=== PATIENT | male | born 1940 | race Caucasian/White ===

== ENCOUNTER 2016-05-11 15:16 | Outpatient (CLI) | payer MEDICARE, OTHER | END 2016-05-11 15:17 | disposition home or self-care (01) | DX: E11.9 Type 2 diabetes mellitus without complications (principal); Z79.899 Other long term (current) drug therapy ==

== ENCOUNTER 2016-06-07 11:03 | Outpatient (CLI) | payer MEDICARE, OTHER | END 2016-06-07 11:04 | disposition home or self-care (01) | DX: G47.10 Hypersomnia, unspecified (principal); R06.83 Snoring; E66.9 Obesity, unspecified; Z68.32 Body mass index [BMI] 32.0-32.9, adult; I10 Essential (primary) hypertension | CPT/HCPCS: 99203; G0463 ==

== ENCOUNTER 2016-06-22 19:28 | Outpatient (CLI) | payer MEDICARE, OTHER | END 2016-06-22 19:29 | disposition home or self-care (01) | DX: G47.33 Obstructive sleep apnea (adult) (pediatric) (principal); G47.61 Periodic limb movement disorder; Z68.33 Body mass index [BMI] 33.0-33.9, adult ==

== ENCOUNTER 2016-07-07 14:09 | Outpatient (CLI) | payer MEDICARE, OTHER | END 2016-07-07 14:10 | disposition home or self-care (01) | DX: G47.33 Obstructive sleep apnea (adult) (pediatric) (principal) | CPT/HCPCS: 99214; G0463 ==

== ENCOUNTER 2016-07-31 20:07 | Outpatient (CLI) | payer MEDICARE, OTHER | END 2016-07-31 20:08 | disposition home or self-care (01) | LOC: SC 20:07 | PROVIDERS: ATTEND Internal Medicine Pulmonary Disease | DX: G47.33 Obstructive sleep apnea (adult) (pediatric) (principal); G47.61 Periodic limb movement disorder; Z68.33 Body mass index [BMI] 33.0-33.9, adult; R09.02 Hypoxemia | CPT/HCPCS: 95811 ==

== ENCOUNTER 2016-08-13 10:28 | Outpatient (CLI) | payer MEDICARE, OTHER ==
[2016-08-13 18:22] LABS: BILIRUBIN,TOTAL 0.8 mg/dL (0.2-1.0); BUN - BLOOD UREA NITROGEN 21 mg/dL (6-20); CALCIUM 9.1 mg/dL (8.5-10.3); CARBON DIOXIDE - CO2 23 mmol/L (21-32); CHLORIDE 103 mmol/L (101-111); CHOL/HDL RATIO 3.9 (<5.0); CHOLESTEROL 158 mg/dL; CREATININE 1.2 mg/dL (0.6-1.2); GFR - MDRD 59 (>89); GLUCOSE 133 mg/dL (70-100); HDL CHOLESTEROL 41 mg/dL; LDL/HDL RATIO 1.9 (<3.6); POTASSIUM 4.3 mmol/L (3.5-5.0); SODIUM 137 mmol/L (135-145); TOTAL PROTEIN 7.5 g/dL (6.7-8.2); TRIGLYCERIDES 200 mg/dL; VLDL CHOLESTEROL 40 mg/dL
[2016-08-13 18:23] LABS: BASOPHILS % (AUTO) 0.8 %; EOSINOPHILS # (AUTO) 0.4 10^3/uL (0.0-0.7); EOSINOPHILS % (AUTO) 6.4 %; HCT - HEMATOCRIT 47.3 % (42.0-52.0); HGB - HEMOGLOBIN 15.5 g/dL (14.0-18.0); LYMPHOCYTES # (AUTO) 1.2 10^3/uL (1.5-3.5); LYMPHOCYTES % (AUTO) 20.2 %; MEAN CORPUSCULAR HEMOGLOBIN 32.4 pg (27.0-31.0); MEAN CORPUSCULAR HGB CONC 32.7 g/dL (32.0-36.0); MEAN CORPUSCULAR VOLUME 99.1 fL (80.0-94.0); MEAN PLATELET VOLUME 9.6 fL (7.4-11.4); MONOCYTES # (AUTO) 0.5 10^3/uL (0.0-1.0); MONOCYTES % (AUTO) 8.5 %; NEUTROPHILS # (AUTO) 3.6 10^3/uL (1.5-6.6); NEUTROPHILS % (AUTO) 64.1 %; NUCLEATED RED BLOOD CELLS AUTO 0.4 /100WBC; RED BLOOD COUNT 4.77 10^6/uL (4.70-6.10); RED CELL DISTRIBUTION WIDTH 14.7 % (12.0-15.0); UNCORRECTED WHITE BLOOD COUNT 5.7 x10^3/uL; WHITE BLOOD COUNT 5.7 x10^3/uL (4.8-10.8)
== END 2016-08-13 10:29 | disposition home or self-care (01) ==
LOC: LAB.F 10:28
PROVIDERS: ATTEND Internal Medicine
DX: E11.65 Type 2 diabetes mellitus with hyperglycemia (principal)
CPT/HCPCS: 36415; 80053; 80061; 84443; 85025

== ENCOUNTER 2016-08-30 15:19 | Outpatient (CLI) | payer MEDICARE, OTHER | END 2016-08-30 15:20 | disposition home or self-care (01) | LOC: SC 15:19 | PROVIDERS: ATTEND Nurse Practitioner Family | DX: G47.33 Obstructive sleep apnea (adult) (pediatric) (principal); G47.61 Periodic limb movement disorder; R09.02 Hypoxemia | CPT/HCPCS: 99214; G0463; 99212 ==

== ENCOUNTER 2016-10-27 10:53 | Outpatient (CLI) | payer MEDICARE, OTHER | END 2016-10-27 10:54 | disposition home or self-care (01) | LOC: SC 10:53 | PROVIDERS: ATTEND Nurse Practitioner Family | DX: G47.33 Obstructive sleep apnea (adult) (pediatric) (principal) | CPT/HCPCS: 99214; G0463; 99212 ==

== ENCOUNTER 2016-11-29 10:27 | Outpatient (CLI) | payer MEDICARE, OTHER | END 2016-11-29 10:28 | disposition home or self-care (01) | LOC: SC 10:27 | PROVIDERS: ATTEND Nurse Practitioner Family | DX: G47.33 Obstructive sleep apnea (adult) (pediatric) (principal) | CPT/HCPCS: 99214; G0463; 99212 ==

== ENCOUNTER 2016-12-22 14:25 | Outpatient (CLI) | payer MEDICARE, OTHER ==
--- NOTE | 2016-12-22 16:58 | XRAY Report ---
TWO VIEW RIGHT SHOULDER: 12/22/2016 CLINICAL INDICATION: Fall, pain. FINDINGS: Frontal and scapular Y views of the right shoulder demonstrate degenerative changes of the glenohumeral and acromioclavicular joints. The humeral head appears high riding, suggestive of chron ic rotator cuff tear. There is no evidence of acute fracture or dislocation. IMPRESSION: DEGENERATIVE CHANGES, WITH A HIGH RIDING HUMERAL HEAD, SUGGESTIVE OF CHRONIC ROTATOR CUF F TEAR. JOB #: [id number] EXT JOB #:[id number]
== END 2016-12-22 14:26 | disposition home or self-care (01) ==
LOC: DI 14:25
PROVIDERS: ATTEND Nurse Practitioner Primary Care
DX: M19.011 Primary osteoarthritis, right shoulder (principal)

== ENCOUNTER 2016-12-28 14:13 | Outpatient (CLI) | payer MEDICARE, OTHER ==
--- NOTE | 2016-12-28 18:49 | MRI Report ---
EXAM: RIGHT SHOULDER MRI WITHOUT CONTRAST EXAM DATE: 12/28/2016 03:10 PM. CLINICAL HISTORY: Fell 6 months ago. Chronic pain. ?Rotator cuff tear. COMPARISON: X-ray 12/22/2016. TECHNIQUE: Multiplanar, multisequence T1-weighted and fluid-sensitive sequences of the shoulder witho ut contrast. Other: None. FINDINGS: Acromioclavicular Region: The acromion is type III. There is mild acromioclavicular joint osteoarthri tis. Fluid in the subacromial bursa. Glenohumeral Region: There is moderate thinning of the hyaline cartilage of the glenohumeral joint. Bone Marrow: There is a comminuted, nonunited fracture of the greater tuberosity. There is edema of t he adjacent bony humerus. There is a healed fracture of the posterior one-third of the bony glenoid. There is cortical irregularity in the superior subchondral bone of the humerus. The findings suggest prior trauma. Labrum: High T2 signal is seen undermining the posterior labrum from the 6 o'clock to 12 o'clock posi tions, consistent with a large posterior labral tear. There is increased T2 signal in the superior la krish also suggestive of a superior labral tear. Musculature/Rotator Cuff: There is moderate supraspinatus tendinosis. Infraspinatus and subscapularis appear unremarkable. No edema or fatty atrophy. Biceps Tendon: The long head of the biceps tendon and biceps alfred are intact. Other: The subcutaneous tissues are unremarkable. IMPRESSION: 1. 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 2. Moderate glenohumeral osteoarthritis. 3. Large superior and posterior labral tear. 4. Supraspinatus tendinosis. 5. Mild acromioclavicular osteoarthritis. [facility] MUSCULOSKELETAL RADIOLOGY SECTION Referring Provider Line: [phone] SITE ID: [id number]
== END 2016-12-28 14:14 | disposition home or self-care (01) ==
LOC: DI 14:13
PROVIDERS: ATTEND Nurse Practitioner Primary Care
DX: S42.251A Displaced fracture of greater tuberosity of right humerus, initial encounter for closed fracture (principal); M19.011 Primary osteoarthritis, right shoulder; S43.491A Other sprain of right shoulder joint, initial encounter; M75.91 Shoulder lesion, unspecified, right shoulder

== ENCOUNTER 2017-02-08 16:52 | Outpatient (CLI) | payer MEDICARE, OTHER | END 2017-02-08 16:53 | disposition E | LOC: EMS 16:52 | PROVIDERS: ATTEND Surgery ==